=== PATIENT | male | born 1950 | race American Indian/Alaskan Native ===

== ENCOUNTER 2025-01-22 18:27 | Inpatient (IN) | payer MEDICARE, MEDICAID ==
[~2025-01-22] VITALS: Ht 177.8 cm; Wt 52.0 kg
--- NOTE | 2025-01-22 18:43 | Physician Documentation ---
History of Present Illness ~ Chief Complaint: See Chief Complaint Stated Complaint: FOOT PAIN Time Seen by MD: 18:40 HPI Patient presents to the emergency room for evaluation of his right 2nd toe. Over the past three months he has been suffering from an infection. He was placed on antibiotics without effect. He showed up at [facility] with his toe and that has concern for gangrene therefore was sent to our facility to be evaluated by ortho. Vanc and Rocephin administered CT angio from sending facility showed that that has severe a proximally 90% stenosis in the distal right common femoral artery and that has also occlusion of the right dorsalis pedis at the ankle joint with diminished flow in the plantar arteries and that there was into rashes gas on both sides of the 2nd DIP joint. Medication Reconciliation Allergies: Coded Allergies: No Known Allergies (Unverified , 01/22/25) Review of Systems ROS All review of systems negative except as per HPI Physical Exam Vital Signs: Temperature: 98.4, Source: Oral, Heart Rate: 87, Respiratory Rate: 24, BP: 132/85, Pulse Oximetry: 84, Weight: 52.000 Physical Exam General: Patient is awake, alert, oriented x4 in no acute distress Head: Normocephalic and atraumatic. Eyes: Conjunctival normal. EOMI. PERRL. ENT: Mucous membranes moist. Neck: Supple, trachea is midline. Chest: Clear to auscultation bilaterally without rales, rhonchi, or wheezes. Th ere is no accessory muscle use or retractions. Cardiac: RRR without murmurs, gallops, or rubs. Extremities: noted gangrenous right 2nd digit Progress Results/Orders Results/Orders Orders - EDMOND MOON MD Vl Tai (01/22/25 ) Page Hospitalist (01/22/25 19:19) Fill Out Med Reconciliation (01/22/25 19:19) Page Hospitalist (01/22/25 19:19) Fill Out Med Reconciliation (01/22/25 19:19) Heparin 25,000 Unit/250ml Bag (Heparin 2 (01/22/25 19:20) Heparin 10,000 Unit/Ml 1ml (Heparin 10,0 (01/22/25 19:20) Cbc/Diff (01/24/25 03:00) Cbc/Diff (01/25/25 03:00) Cbc/Diff (01/26/25 03:00) Cbc/Diff (01/27/25 03:00) Completed Orders - EDMOND MOON MD Vl Tai (01/22/25 ) Cbc/Diff (01/22/25 19:04) BMP (01/22/25 19:04) Type And Screen (01/22/25 19:04) Pt Inr (01/22/25 19:19) PTT (01/22/25 19:19) Cbc/Diff (01/23/25 03:00) Hydrocodone/Apap 10/325 ([place] 10/325mg (01/22/25 20:25) Nicotine 21mg Patch -24hr (Habitrol Patc (01/22/25 20:25) Message To Nursing (01/22/25 20:30) Dvt Ptt (01/23/25 03:30) Hgb A1c (01/22/25 19:16) Vital Signs 01/22/25 01/22/25 18:30 18:38 Temp 98.4 Pulse 87 Resp 24 B/P (MAP) 132/85 Pulse Ox 84 Laboratory Tests Test 01/22/25 19:16 White Blood Count 7.4 Red Blood Count 4.81 Hemoglobin 13.9 L Hematocrit 40.1 L Mean Corpuscular Volume 83.3 Mean Corpuscular Hemoglobin 28.8 Mean Corpuscular Hemoglobin Concent 34.6 Red Cell Distribution Width 16.3 H Platelet Count 179 Mean Platelet Volume 6.7 L Neutrophils (%) (Auto) 86.4 H Lymphocytes (%) (Auto) 7.4 L Monocytes (%) (Auto) 5.2 Eosinophils (%) (Auto) 0.3 Basophils (%) (Auto) 0.7 Neutrophils # (Auto) 6.4 Lymphocytes # (Auto) 0.5 L Monocytes # (Auto) 0.4 Eosinophils # (Auto) 0.0 Basophils # (Auto) 0.1 CBC Comment Prothrombin Time 11.5 INR International Normalized Ratio 1.1 Activated Partial Thromboplast Time 58 H Coagulation Comments Sodium Level 136 Potassium Level 3.6 Chloride Level 100 Carbon Dioxide Level 28.7 Anion Gap 7 L Blood Urea Nitrogen 19 H Creatinine 0.73 Estimated GFR/1.73 m2 > 90 BUN/Creatinine Ratio 26.0 H Glucose Level 106 H Hemoglobin A1c 5.5 Lactic Acid Level 0.6 Calcium Level 8.2 L Albumin 3.0 L Chemistry Comments Medical Decision Making Findings Patient is sent from [facility] for evaluation of necrotic toe. Reviewed paperwork sent with the patient that has a CTA angiogram performed. Results has been discussed with Dr. Hu who requests an TAI. Dr. Tinoco with orthopedist that has also been made aware of patient. Vital signs stable. Patient had no acute distress Foot Diff Dx:Considerations: Include: Cellulitis, DJD, Fracture-metatarsal, Gou t, Ingrown toenail, Neurovascular injury Departure Admitted to Inpatient Unit: yes, to hospitalist Impression: Primary Impression: Necrosis of toe Additional Impression: Occlusion of right dorsalis pedis artery Condition: Guarded Referrals: NO PRIMARY CARE PROVIDER (PCP) Critical Care Note Total Time (mins): 45 Critical Care Note The very real possibility of a deterioration of this patient's condition required the highest level of my preparedness for sudden, emergent intervention. I provided critical care services, which included medication orders, frequent reevaluations of the patient's condition and response to treatment, ordering and reviewing test results, and discussing the case with various consultants. Excludes time spent performing separately billable procedures. The critical care time associated with the care of the patient was 45 minutes not counting procedures Signature Scribe Signature: No scribe Attestation: The note accurately reflects work and decisions made by me.Edmond Moon MD 01/22/25 19:04 EDMOND MOON MD Jan 22, 2025 18:43
[2025-01-22] MEDS ORDERED: heparin 10,000 units/1 ML INJ IV ONE (19:20)
[2025-01-22 19:31] LABS: MEAN PLATELET VOLUME 6.7 FL (7.4-10.4); RED CELL DISTRIBUTION WIDTH 16.3 % (11.5-14.5)
[2025-01-22 19:37] LABS: CREATININE 0.73 MG/DL (0.60-1.10); TOTAL CARBON DIOXIDE 28.7 MMOL/L (24-32); eCRCL 67 ML/MIN; eGFR > 90 ML/MIN
[2025-01-22 19:45] LABS: APTT 58 SECONDS (22-32); INR 1.1 INR
--- NOTE | 2025-01-22 20:28 | VASCULAR REPORT ---
EXAM: VASC VL TAI ANKLE/BRACHIAL INDEX CLINICAL HISTORY: Peripheral arterial disease COMPARISON: None TECHNIQUE: Bilateral systolic ankle and brachial pressures are obtained, with ankle pulse volume waveforms and i ndices. FINDINGS: Pressures: Right Left Brachial 137 mmHg Not measured due to IV. PT 76 mmHg 80 mmHg DP pressure too low 84 mmHg TAI: Right Left 0.55 0.61 Pulse volume waveforms: Bilateral posterior tibial and dorsal pedal artery waveforms are monophasic. Velocity is especially d epressed in the right dorsal pedal artery suggestive of upstream arterial disease. IMPRESSION: [id number] depression of bilateral lower extremity ankle-brachial indices, right worse than lef t. Consider further evaluation with CTA runoff of bilateral lower extremities. 1.0-1.4: normal 0.91-0.99 borderline 0.9: abnormal (i.e. PAD) 0.4-0.9: fejr-jz-ijdbnday PAD <0.4: suggestive of severe PAD
[2025-01-22] MEDS: heparin 25,000 UNIT/250ml bag 250 ML IV PRN (20:33)
[2025-01-22] MEDS: MESSAGE TO NURSING IV ONE (20:34)
[2025-01-22] MEDS: nicotine 21mg patch - 24 hr TD ONE (20:41)
[2025-01-22] MEDS: HYDROcodone/acetaminophen 10/325mg tab PO ONE (20:42)
[2025-01-22] MEDS ORDERED: magnesium Cl slow-release 64mg tablet PO PRN (21:05)
[2025-01-22] MEDS ORDERED: magnesium sulf-water 4G/100mL 100 ML IV PRN (21:05)
[2025-01-22] MEDS ORDERED: magnesium hydroxide 30ml (MOM) UD suspension PO PRN (21:05)
[2025-01-22] MEDS ORDERED: potassium Cl 20 mEq SR tablet PO PRN (21:05)
[2025-01-22] MEDS ORDERED: potassium Cl 40MEQ/1/2NS 520ml 520 ML IV PRN (21:05)
[2025-01-22] MEDS ORDERED: magnesium sulf-water 2g/50mL 50 ML IV PRN (21:05)
[2025-01-22] MEDS ORDERED: mag hydrox/Alum hydrox/simeth 30ml oral suspension PO PRN (21:05)
[2025-01-22] MEDS ORDERED: HYDROcodone/acetaminophen 5mg/325mg tablet PO PRN (21:05)
[2025-01-22] MEDS: ondansetron/PF 4mg/2ml inj IV PRN (21:33)
[2025-01-22] MEDS: HYDROmorphone/PF 0.2 MG/ML SYRINGE IV PRN (21:34)
--- NOTE | 2025-01-22 21:39 | PROGRESS NOTE ---
Progress Note ID Providers to CC ~ Progress Note Progress Note: cta reviewed-abd noted-pt needs right ext iliac stent-Will ask Dr. Bowling to place stent IKE HERNANDEZ MD Jan 22, 2025 21:39
--- NOTE | 2025-01-22 21:58 | RADIOLOGY REPORT ---
CHEST RADIOGRAPH Indication: smoker. Possible surgery Technique: Single frontal view of the chest was obtained COMPARISON: None FINDINGS: Lines and Tubes: None Lungs: Chronic appearing bilateral interstitial pulmonary markings. Left basilar atelectasis and prob able scarring of the left lateral lung base. Pleura: No effusion. No pneumothorax. Cardiomediastinal contours: Unremarkable. Atherosclerotic vascular calcifications. Bones: Unremarkable IMPRESSION: 1. No acute disease. Chronic appearing bilateral interstitial pulmonary markings, left basilar atelec tasis and probable scarring of the lateral left lung base.
[2025-01-22] MEDS: vancomycin/NS 1 GM ADD-VANTAGE 250 ML IV SCH (22:07)
[2025-01-22] MEDS: normal saline 1000ml 1,000 ML IV SCH (22:07)
--- NOTE | 2025-01-22 22:12 | ELECTROCARDIOGRAPH REPORT ---
[facility] Test Date: 2025-01-22 Test Time: 22:10:20 Pat Name: MODE MUNOZ Department: ED HOLD Room: ORTHO [facility] Gender: M Screw Machine Set Up Operator: : 1950 Requested By: HARDEEP BLEDSOE Order Number: [id number] Reading MD: Dr. Zane Almendarez Measurements Intervals [place] Rate: 81 P: 72 NV: 168 QRS: 40 QRSD: 100 T: 55 QT: 406 QTc: 472 Interpretive Statements Sinus rhythm Supraventricular bigeminy Electronically Signed On 01-30-2025 20:06:[address] Zane Almendarez Please click the below link to view image of tracing.
[2025-01-22 23:00] VITALS: BP 140/74; PULSE 79; RESP 15; TEMP 96.9; O2SAT 98
[2025-01-22] MEDS: ALPRAZolam 0.25mg tablet PO ONE (23:12)
--- NOTE | 2025-01-22 23:15 | HISTORY AND PHYSICAL-Residence ---
History & Physical Providers to CC Resident Creating Document: HARDEEP BLEDSOE RES ~ History of Present Illness Reason for Admit\Complaint: Right 2nd and 3rd toe gangrene History of Present Illness The 74-year-old male was transferred from outside hospital for further management of right foot necrotic toes. He is a poor historian. Per the outside facility, he received 1 g Rocephin and 1 g vancomycin and also that he was smoking in the bathrooms. Patient states that he developed wound on his right 2nd toe few months back and is unsure how he developed the wound. States that he used multiple antibiotics. Also mentioned that he used dog antibiotics because he could not get an appointment with the PCP. Likely has some underlying psychiatric issues. Denies any other complaints. States that the wound has not improved and got worse. Now complains of pain in the right foot which also sometimes radiates to his knees. Denies any other complaints. Is very agitated and keeps getting out of the bed. Smokes tobacco and fentanyl. Denies using any medications at home Allergies: Coded Allergies: No Known Allergies (Unverified , 01/22/25) Past Medical History Past Medical History Denies any past medical history. Tobacco abuse, fentanyl abuse Past Surgical History Surgical History Comment Denies any past surgical history Past Social History Social History Comment Smokes fentanyl and smokes tobacco- about five cigarettes per day for many years. Denies drinking alcohol. ROS ROS Constitutional: No fever, chills, dizziness, weakness, weight gain or loss Eyes: No pain, erythema, discharge, blurring of vision ENT: No sore throat, epistaxis, tinnitus Cardiovascular: No chest pain, chest pressure, chest discomfort, palpitations, syncope, lower extremity edema, paroxysmal nocturnal dyspnea Respiratory: No shortness of breath, cough, hemoptysis Gastrointestinal: Normal appetite. No nausea, vomiting, diarrhea, constipation, hematemesis, abdominal pain, bloating, melena or fresh blood Genitourinary: No frequency, urgency, nocturia, hematuria or dysuria Musculoskeletal: Right foot pain present Integumentary: No change in skin, hair, nails. No swelling, bruising, abrasions Neurologic: No headache, neck pain, numbness or tingling of the extremities, weakness Psychiatric: No delusions, depression, loss of interest in normal activity or change in sleep pattern, hallucinations, suicidal ideations Endocrine: No fatigue, weakness, polydipsia, polyuria, change in appetite, heat or cold intolerance, sweating, dry skin Hematological: No bleeding, petechiae, bruising Allergies: No asthma or urticaria Exam Vitals: Vital Signs Date Time Temp Pulse Resp B/P (MAP) Pulse Ox O2 Delivery O2 Flow Rate FiO2 01/22/25 23:09 16 01/22/25 18:38 01/22/25 18:30 98.4 87 84 General: Alert and oriented x4. Anxious and agitated HEENT: Normocephalic and atraumatic. Pupils equal round reactive to light and accommodation. Extraocular movements intact. Oral and nasal mucosa moist Neck: Trachea is in midline. No masses or JVD Chest: Bilateral normal breath sounds. No crackles, rhonchi or wheezes Cardiovascular: Regular rate and rhythm. S1-S2 normal. No rubs or murmurs Abdomen: Soft, nontender nondistended. Bowel sounds present Extremities: Completely necrotic right 2nd toe and partial necrosis of right 3rd toe. Tender to touch around the toes. Dystrophy and discoloration of bilateral toenails. No cyanosis or edema. No purplish discoloration of foot. 2+ pedal pulse on left foot and 1+ in the right -difficult to assess as it is tender to touch Central Nervous System: No gross sensory or motor deficits. CN II to XII intact Skin: Warm and dry Diagnostic Data Last Recorded Lab Results: 01/22/25191501/22/251915 Diagnostic Data: Laboratory Tests Test 01/22/25 19:16 Prothrombin Time 11.5 SECONDS (9.0-12.0) INR International Normalized Ratio 1.1 INR Activated Partial Thromboplast Time 58 SECONDS (22-32) H Coagulation Comments Advance Care Planning Advanced Care plannin - 30 Minutes Additional Plan Right 2nd and 3rd toe gangrene No acute limb ischemic signs Lower extremity CTA done at the outside hospital showed severe approximately 90% stenosis in the distal right common iliac artery, occlusion of the right dorsalis pedis at the ankle joint with diminished flow in the plantar arteries, interosseous gas on both sides of the 2nd distal interphalangeal joint Heparin drip started in the ER Started aspirin 81 mg p.o. daily On-call vascular surgeon -Dr. Moeller consulted Per surgeon's note, patient needs right external iliac artery stent and that he will discuss with IR-Dr. Bowling with a possible surgical procedure on ER physician also consulted ortho-Dr. Tinoco who mentioned that Dr. Coon is going to see the patient tomorrow in a.m. Right TAI: 0.55. Left TAI: 0.61 Received Rocephin and vancomycin at the outside hospital On Zosyn 3.375 g IV q.8h and vancomycin pharmacy to dose On normal saline at 100 cc/hour NPO after midnight possible toe amputation tomorrow in a.m. Continue Dilaudid/morphine MRI right lower extremity ordered to look for the extension of gangrene. Pending ESR Acute encephalopathy/psychosis Likely has underlying psychiatric issue Pulling out IV lines in getting out of bed I spoke with the patient in a monitored pain medication Gave Dilaudid 2 mg IV once Xanax 0.5 mg p.o. once but continues to pull IV lines Gave Ativan 2 mg IV once and Haldol 5mg IM once Prolonged QTC 472. Continue telemetry monitoring monitoring due to risk of arrhythmias with the Haldol Consider olanzapine if continues to be agitated Pending UA and urine tox, ethyl alcohol level, TSH Head CT ordered but has no difficulty moving all his extremities and is oriented with his speech Tobacco abuse and possible opioid use disorder States that he used methadone in the past Now receiving opioids for pain due to gangrene and toes Did not start nicotine patch due to possible surgery tomorrow in a.m. Field Marketing Coordinator and substance use navigator consult requested Unsure about patient's living conditions Diet: NPO for possible surgery tomorrow in a.m. DVT prophylaxis: Start after the surgery Hardeep Bledsoe MD Internal Medicine Resident, PGY 3 Patient evaluated using HIPPA compliant AV device Discussed with resident as outlined above Katerine Quach MD Date of Service: Jan 23, 2025 Billing Provider: KATERINE QUACH MD, MANOJNA RES Jan 22, 2025 23:14 KATERINE QUACH MD Jan 23, 2025 04:19
[2025-01-22] MEDS: HYDROcodone/acetaminophen 10/325mg tab PO PRN (23:17)
[2025-01-23] VITALS (7 sets, daily range): BP systolic 132–149; BP diastolic 73–89; PULSE 56–80; RESP 13–20; TEMP 97.8–98.2; O2SAT 87–98
[2025-01-23] MEDS: haloperidol lactate 5mg/ml inj IM ONE ×2 (01:53→20:34)
[2025-01-23] MEDS: piperacillin/tazo 3.375gm/50ml 50 ML IV SCH (02:35)
[2025-01-23 03:51] LABS: MEAN PLATELET VOLUME 6.7 FL (7.4-10.4); RED CELL DISTRIBUTION WIDTH 16.1 % (11.5-14.5)
[2025-01-23 04:08] LABS: CHOL/HDL RATIO 3.2 (0.00-4.99); CREATININE 0.65 MG/DL (0.60-1.10); LDL CHOLESTEROL 79 MG/DL (50-100); PHOSPHORUS 3.0 MG/DL (2.3-4.5); TOTAL CARBON DIOXIDE 28.7 MMOL/L (24-32); eCRCL 76 ML/MIN; eGFR > 90 ML/MIN
[2025-01-23 04:19] LABS: INR 1.2 INR
[2025-01-23 04:44] LABS: ETHANOL < 10 MG/DL (<10)
--- NOTE | 2025-01-23 06:47 | CONSULTATION REPORT ---
History of Present Illness Providers to CC ~ Reason for Admit\Admit Dx: Right 2nd and 3rd toe gangrene Allergies: Coded Allergies: No Known Allergies (Unverified , 01/22/25) Physical Exam Last Vital Signs Recorded: Temperature: 98.0, Source: Oral, Heart Rate: 80, Respiratory Rate: 20, BP: 149/76, Pulse Oximetry: 93, Weight: 52.000 Physical Exam gangrenous changes to the 2nd and 3rd toe exending to the dorsal foot with gangrenous changes to the tip of the 1st digit pulses are weak and cft is delayed mostly dry gangrene with some serous drainage to the base of 2nd toe Results Diagram Lab Result Diagram: 01/23/25 0330 01/23/25 0330 Assessment/Plan Additional Plan xr and MRi ordered plan for surgical intervention recommend vascular consult spoke with vascular and they are going to perform revasc and their medical advise is to wait on the amputation until tuesday at the earliest will follow patient over the weekend and plan for TMA early next week. abx per medical team local wound care per nursing staff until tma can be reached at office [phone] MARIA G OSORIO DPM Jan 23, 2025 06:47
[2025-01-23] MEDS: K and/or MAG REPLACEMENT MC SCH (08:00)
[2025-01-23] MEDS: aspirin 81mg, enteric-coated 1 TAB TABLET.DR PO SCH (08:26)
--- NOTE | 2025-01-23 09:17 | RADIOLOGY REPORT ---
CLINICAL INDICATION: right foot 2nd toe infection TECHNIQUE: DI FOOT, COMPLETE (3VW MIN) Comparison: None FINDINGS/IMPRESSION: : There is no evidence of acute fracture or dislocation. Soft tissues are unremarkable. Osteopenia.
[2025-01-23] MEDS: MESSAGE TO NURSING IV ONE ×3 (10:08→22:47)
--- NOTE | 2025-01-23 12:37 | RADIOLOGY REPORT ---
CT CT HEAD Indication: r/o intracranial abnormalities EXAM DATE: 01/23/2025 11:52 AM COMPARISON: None TECHNIQUE: CT of the head without intravenous contrast. RADIATION DOSE: CTDIvol: 53 mGy, DLP: 840 mGy*cm FINDINGS: There is no intracranial hemorrhage. There is no extra-axial fluid, mass, mass effect or midline shif t. The ventricles are midline and normal in size. Basilar cisterns are patent. There are moderate per iventricular and subcortical white matter chronic microvascular ischemic changes. Imaged portion of the paranasal sinuses well pneumatized. Moderate left mastoid effusion. Right orb ital lens absent. IMPRESSION: No intracranial hemorrhage or mass effect. Moderate chronic microvascular ischemic changes. Left mastoid effusion.
--- NOTE | 2025-01-23 20:55 | PROGRESS NOTE ---
Daily Progress Note Providers to CC ~ Antibiotic Timeout Antibiotic Ordered?: Yes Subjective Patient was seen in presence of nursing staff patient is confused. Dr. Norris evaluated the patient for right 2nd and 3rd toe gangrene. Objective Vital Signs Date Time Temp Pulse Resp B/P (MAP) Pulse Ox O2 Delivery O2 Flow Rate FiO2 01/23/25 10:00 97.9 63 18 145/74 (97) 94 Nasal Cannula 2.0 Result Diagram: 01/23/2532901/23/25 0330 General-patient not in any acute distress, confused , chronically ill-appearing HEENT-atraumatic normocephalic, neck supple without elevated JVD, no thyromegaly or carotid bruit. No lymphadenopathy bilaterally. Eyes-no icterus or pallor seen in eyes Chest-clear to auscultation bilaterally, breathing nonlabored no tachypnea, no wheezing, no crepitation, no crackles. Heart-S1-S2 normal, regular heart rate no murmur Abdomen bowel sounds positive on auscultation, soft nondistended nontender no guarding, no rigidity Skin - dry gangrene present over right 2nd and 3rd great toe Neurology-grossly intact, nonfocal alert awake oriented Extremity- no pedal edema able to move all 4 extremitiesdry gangrene present over right 2nd and 3rd great toe. No pedal pulsations noted on palpation Psychiatry - patient is confused barely cooperated during physical examination Coagulation Studies Laboratory Tests Test 01/22/25 19:16 01/23/25 03:30 01/23/25 15:13 Activated Partial Thromboplast Time 58 SECONDS (22-32) H Prothrombin Time 11.8 SECONDS (9.0-12.0) INR International Normalized Ratio 1.2 INR APTT (Heparin Protocol) 81 SECONDS (45-75) H Coagulation Comments Problem\Assessment\Plan Right 2nd and 3rd toe gangrene No acute limb ischemic signs Lower extremity CTA done at the outside hospital showed severe approximately 90% stenosis in the distal right common iliac artery, occlusion of the right dorsalis pedis at the ankle joint with diminished flow in the plantar arteries, interosseous gas on both sides of the 2nd distal interphalangeal joint Heparin drip started in the ER on aspirin 81 mg p.o. daily On-call vascular surgeon -Dr. Moeller consulted he recommended Dr. Bowling to place stent thursday ER physician also consulted ortho-Dr. Tinoco who mentioned that Dr. Coon is going to see the patient . Dr. Coon evaluated the patient today Right TAI: 0.55. Left TAI: 0.61 Received Rocephin and vancomycin at the outside hospital On Zosyn 3.375 g IV q.8h and vancomycin pharmacy to dose On normal saline at 100 cc/hour Continue Dilaudid/morphine MRI right lower extremity ordered to look for the extension of gangrene. ESR 20 normal Acute encephalopathy/psychosis Likely has underlying psychiatric issue Pulling out IV lines in getting out of bed on Dilaudid 2 mg IV , Xanax 0.5 mg p.o. once but continues to pull IV lines got Ativan 2 mg IV once and Haldol 5mg IM once Prolonged QTC 472. Continue telemetry monitoring monitoring due to risk of arrhythmias with the Haldol will Consider olanzapine if continues to be agitated Pending UA and urine tox, ethyl alcohol level, TSH Head CT done and no intracranial hemorrhage or mass effect Tobacco abuse and possible opioid use disorder States that he used methadone in the past Now receiving opioids for pain due to gangrene and toes Registered Art Therapist and substance use navigator consult requested Unsure about patient's living conditions Patient's current condition is guarded we will continue to follow patient in AM . Date of Service: Jan 23, 2025 Billing Provider: MAYO GASPAR MD Common Visit Codes: [id number] INP/OBS CARE(HIGH) MAYO GASPAR MD Jan 23, 2025 20:55
--- NOTE | 2025-01-23 21:01 | CONSULTATION ---
DATE OF CONSULTATION: 01/23/2025 DICTATING PHYSICIAN: Ken Moeller MD REASON FOR CONSULTATION: Evaluation of abnormal CTA. HISTORY OF PRESENT ILLNESS: The patient is a 74-year-old male with a long history of tobacco use. He developed discoloration of toes of his right foot. He was seen at an outside facility. CTA revealed severe right external iliac artery stenosis. Surgical evaluation now requested. On further questioning, the patient has complaints of claudication involving the right leg. No left lower extremity complaints. No previous vascular interventions. He also has a long history of tobacco use. No complaints of any rest pain. PAST MEDICAL HISTORY: Unremarkable. PAST SURGICAL HISTORY: Unremarkable. HOME MEDICATIONS: See chart. ALLERGIES: None. SOCIAL HISTORY: Ongoing tobacco use. Denies alcohol use. REVIEW OF SYSTEMS: See H and P. PHYSICAL EXAMINATION: GENERAL: Well-nourished elderly male, in minimal distress. VITAL SIGNS: Unremarkable. HEART: Regular rate and rhythm. LUNGS: Clear to auscultation. ABDOMEN: Benign. EXTREMITIES: Right lower extremity has diminished pedal pulses. LABORATORY DATA: Labs included WBC of 6.9, hematocrit of 39, and platelet count 162. Chemistries: BUN and creatinine 15 and 0.65. IMAGING STUDIES: ____ right external iliac artery stenosis. Vascular ultrasound reveals right TAI of 0.55 and left TAI of 0.61 with monophasic waveforms. IMPRESSION: * Multilevel peripheral vascular disease with right external iliac artery stenosis. * Right toe ischemia secondary to PAD. * Ongoing tobacco use. RECOMMENDATIONS: * Obtain a CTA of lower extremities. * Consult IR in a.m. for right iliac artery stent placement. Ken Moeller MD TID: [id number] RECEIPT: [id number] KB/JUAN MANUEL/AMI
[2025-01-23 22:02] LABS: APTT 70 SECONDS (22-32)
[2025-01-24 02:00] VITALS: BP 136/64; PULSE 64; RESP 16; TEMP 98.2; O2SAT 94
[2025-01-24 04:54] LABS: MEAN PLATELET VOLUME 6.5 FL (7.4-10.4); RED CELL DISTRIBUTION WIDTH 15.7 % (11.5-14.5)
[2025-01-24 05:07] LABS: INR 1.2 INR
[2025-01-24 05:16] LABS: CREATININE 0.90 MG/DL (0.60-1.10); PHOSPHORUS 3.3 MG/DL (2.3-4.5); TOTAL CARBON DIOXIDE 24.0 MMOL/L (24-32); eCRCL 55 ML/MIN; eGFR 83 ML/MIN
[2025-01-24] MEDS: MESSAGE TO NURSING IV ONE ×4 (05:21→23:54)
[2025-01-24] MEDS: VANCOMYCIN LEVEL IV ONE (08:30)
[2025-01-24 10:00] VITALS: BP 182/101; PULSE 58; RESP 18; TEMP 97.8; O2SAT 90
--- NOTE | 2025-01-24 10:25 | RADIOLOGY REPORT ---
Examination: CT CTA ABDOMEN LOWER EXTR RUNOFF CLINICAL HISTORY: abnormal benjamin Comparison: None Technique: Using helical technique, CT data from the abdomen through the toes was obtained during rap id IV contrast infusion. The examination was timed to the arterial system to generate a CT angiograph ic study. 3D images were generated at an independent work station. Dose reduction techniques included automated exposure control. Radiation Dose Information: CT Dose: CTDI volume is 4.4 mGy. Dose-length product is 1350.2 mGy*cm Findings: Vascular: Abdominal aorta: Normal caliber, patent Celiac artery: Patent SMA: Patent Renal arteries: Patent LY: Patent Right lower extremity: Common iliac artery: Patent External iliac artery: Patent Internal iliac artery: Patent Common femoral artery: High-grade approximately 90% short-segment stenosis of the proximal common fem oral artery /distal external iliac artery secondary to atheromatous plaque. Profunda femoral artery: Patent Superficial femoral artery: Patent Popliteal artery: Patent Anterior tibial artery: Patent Peroneal tibial trunk: Patent Peroneal artery: Patent Posterior tibial artery: Patent Dorsalis pedis artery: Patent Left lower extremity: Common iliac artery: Patent External iliac artery: Patent Internal iliac artery: Patent Common femoral artery: Patent Profunda femoral artery: Patent Superficial femoral artery: Occluded. Reconstituted distally just proximal of the popliteal artery. Popliteal artery: Patent Anterior tibial artery: Patent Peroneal tibial trunk: Patent Peroneal artery: Patent Posterior tibial artery: Patent Dorsalis pedis artery: Patent Portal/mesenteric veins: normal Abdominal systemic veins: normal Chest: Severe emphysema. Dependent atelectasis. Abdomen/Pelvis: Liver: The liver is normal in size and morphology,. No focal hepatic lesion. The portal veins are pat ent. Biliary System: Gallbladder: Unremarkable Bile Ducts: No intrahepatic or extrahepatic biliary ductal dilation. Spleen: No splenomegaly or focal splenic lesion. Pancreas: No masses or ductal dilation. Adrenals: Normal. Urinary System: Kidneys and Ureters: Normal in size and location. No renal masses. No renal or ureteral calculi. No hydronephrosis or hydroureter. Bladder: Normal. GI System: Moderately thickened ascending and transverse colon. Lymph nodes: No lymphadenopathy. Peritoneal cavity and surface: No free fluid. No pneumoperitoneum. Soft Tissues: Normal. Reproductive Organs: Normal. Bones: No acute fracture or aggressive osseous lesion. Degenerative changes of the spine. Impression: Possible colitis versus underdistention of the ascending and transverse colon. Diffuse vascular atherosclerotic disease. High-grade short-segment, near 90% stenosis of the distal right external iliac artery / proximal comm on femoral artery. Occlusion of nearly the entire left superficial femoral artery with reconstitution distally likely fr om the deep femoral artery. 3-vessel arterial flow is present into bilateral lower extremities.
[2025-01-24] MEDS: VANCOmycin 1250MG/NS 250ml Bag 250 ML IV SCH (13:39)
[2025-01-24] MEDS: potassium Cl 20 mEq SR tablet PO PRN (16:19)
--- NOTE | 2025-01-24 17:15 | PROGRESS NOTE ---
Progress Note - Angio Providers to CC ~ Angio Progress Note: Reviewed CTA and agree a Right external iliac stent is needed. This could be done via LCFA access or actually possibly via a distal RCFA access and short sheath etc. However, due to consent limitations, anesthesia and patient condition at this time, today we are unable to do this procedure. D/W Dr. Moeller. SUZI LOWERY MD Jan 24, 2025 17:15
[2025-01-24 18:30] VITALS: BP 151/64; PULSE 44; RESP 14; TEMP 97.3; O2SAT 93
[2025-01-24] MEDS: normal saline 1000ml 1,000 ML IV SCH (19:36)
--- NOTE | 2025-01-24 19:39 | PROGRESS NOTE ---
Daily Progress Note Providers to CC ~ Antibiotic Timeout Antibiotic Ordered?: No Subjective Patient was seen in his room he is very confused still. Interventional application packaging specialist note" Reviewed CTA and agree a Right external iliac stent is needed. This could be done via LCFA access or actually possibly via a distal RCFA access and short sheath etc. However, due to consent limitations, anesthesia and patient condition at this time, today we are unable to do this procedure. D/W Dr. Moeller." Objective Vital Signs Date Time Temp Pulse Resp B/P (MAP) Pulse Ox O2 Delivery O2 Flow Rate FiO2 01/24/25 18:30 97.3 44 14 151/64 (93) 93 Room Air 01/23/25 20:00 2.0 Result Diagram: 01/24/2542801/24/25428 General-patient not in any acute distress, confused , chronically ill-appearing HEENT-atraumatic normocephalic, neck supple without elevated JVD, no thyromegaly or carotid bruit. No lymphadenopathy bilaterally. Eyes-no icterus or pallor seen in eyes Chest-clear to auscultation bilaterally, breathing nonlabored no tachypnea, no wheezing, no crepitation, no crackles. Heart-S1-S2 normal, regular heart rate no murmur Abdomen bowel sounds positive on auscultation, soft nondistended nontender no guarding, no rigidity Skin - dry gangrene present over right 2nd and 3rd great toe Neurology-grossly intact, nonfocal alert awake oriented Extremity- no pedal edema able to move all 4 extremitiesdry gangrene present over right 2nd and 3rd great toe. 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 daily On-call vascular surgeon -Dr. Moeller consulted he recommended Dr. Bowling to place stent ER physician also consulted ortho-Dr. Tinoco who mentioned that Dr. Coon is going to see the patient . Dr. Coon evaluated the patient today Right TAI: 0.55. Left TAI: 0.61 Received Rocephin and vancomycin at the outside hospital On Zosyn 3.375 g IV q.8h and vancomycin pharmacy to dose On normal saline at 100 cc/hour Continue Dilaudid/morphine MRI right lower extremity ordered to look for the extension of gangrene. ESR 20 normal Acute encephalopathy/psychosis Likely has underlying psychiatric issue Pulling out IV lines in getting out of bed on Dilaudid 2 mg IV , Xanax 0.5 mg p.o. once but continues to pull IV lines got Ativan 2 mg IV once and Haldol 5mg IM once Prolonged QTC 472. 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 Date of Service: Jan 24, 2025 Billing Provider: MAYO GASPAR MD Common Visit Codes: [id number] INP/OBS CARE(HIGH) MAYO GASPAR MD Jan 24, 2025 19:39
[2025-01-24] MEDS ORDERED: HYDROmorphone/PF 0.2 MG/ML SYRINGE IV PRN (19:40)
--- NOTE | 2025-01-24 20:25 | RADIOLOGY REPORT ---
Procedure: DI CHEST,SINGLE VIEW 01/24/2025 07:54 PM Indication: monitor changes Comparison: DI CHEST,SINGLE VIEW on DOS: 01/22/25 TECHNIQUE: DI CHEST,SINGLE VIEW FINDINGS: Medical devices: None. Cardiomediastinal: The heart is normal in size. Pulmonary vasculature is within normal limits. Lungs: There is mild bilateral pleural parenchymal scarring scattered throughout the lungs. 9 mm nodu lar opacity at the left lung base. Bones/soft tissues: No acute abnormality is noted. IMPRESSION: 1. 9mm nodular opacity at the left lung base, recommend chest CT for further evaluation. 2. Scattered pleuroparenchymal scarring most notable in the left lung base
[2025-01-24 22:00] VITALS: BP 155/74; PULSE 57; RESP 18; TEMP 96.7; O2SAT 92
--- NOTE | 2025-01-24 22:35 | PROGRESS NOTE ---
Progress Note ID Providers to CC ~ Progress Note Progress Note: Dr. Bowling unable to stent-pt needs transfer IKE HERNANDEZ MD Jan 24, 2025 22:35
[2025-01-24 23:21] LABS: APTT 39 SECONDS (22-32)
[2025-01-24] MEDS: heparin 10,000 units/1 ML INJ IV PRN (23:56)
[2025-01-25] VITALS (15 sets, daily range): BP systolic 83–171; BP diastolic 44–98; PULSE 48–109; RESP 14–22; TEMP 97.1–98.3; O2SAT 90–100
[2025-01-25 05:23] LABS: MEAN PLATELET VOLUME 6.7 FL (7.4-10.4); RED CELL DISTRIBUTION WIDTH 16.3 % (11.5-14.5)
[2025-01-25 05:41] LABS: INR 1.2 INR
[2025-01-25 05:44] LABS: CREATININE 0.72 MG/DL (0.60-1.10); PHOSPHORUS 2.2 MG/DL (2.3-4.5); TOTAL CARBON DIOXIDE 24.5 MMOL/L (24-32); eCRCL 68 ML/MIN; eGFR > 90 ML/MIN
[2025-01-25] MEDS: MESSAGE TO NURSING IV ONE ×2 (06:42→12:29)
[2025-01-25] MEDS: HYDROmorphone inj. 0.5 MG/0.5 ML DISP.SYRIN IV PRN (10:50)
[2025-01-25] MEDS ORDERED: fentaNYL/PF 50MCG/1 ML 2ML syringe ONE (13:03)
[2025-01-25] MEDS ORDERED: LIDOcaine 1% 30ml preserv. free vial ONE (13:03)
[2025-01-25] MEDS ORDERED: heparin 1,000unit/ml 10ml vial 10 ML ONE (13:03)
[2025-01-25] MEDS ORDERED: midazolam 1 mg/ML 2ml injection ONE ×3 (13:03→13:57)
[2025-01-25] MEDS ORDERED: clopidogrel 300mg tablet PO ONE (15:25)
[2025-01-25] MEDS: lactose-reduced food (Ensure Enlive) - 237ml bottle PO SCH (18:00)
--- NOTE | 2025-01-25 19:05 | PROGRESS NOTE ---
Daily Progress Note Providers to CC ~ Antibiotic Timeout Antibiotic Ordered?: Yes Subjective Patient was seen in his room he was alert awake and he was not lethargic or confused like yesterday. He wanted to get some stronger pain medication for his toe pain. Dr. Hu recommended to transfer the patient but I contacted Dr. Dyer to evaluate this patient for vascular procedure and he is willing to do the lower extremity angiogram for the patient. No other concerns we will keep patient NPO for the procedure at 2:30 p.m. today Objective Vital Signs Date Time Temp Pulse Resp B/P (MAP) Pulse Ox O2 Delivery O2 Flow Rate FiO2 01/25/25 18:00 97.3 109 15 137/87 (104) 92 Room Air 01/25/25 16:00 1.0 Result Diagram: 01/25/25 0459 01/25/25 0459 General-patient not in any acute distress, not confused , chronically ill- appearing HEENT-atraumatic normocephalic, neck supple without elevated JVD, no thyromegaly or carotid bruit. No lymphadenopathy bilaterally. Eyes-no icterus or pallor seen in eyes Chest-clear to auscultation bilaterally, breathing nonlabored no tachypnea, no wheezing, no crepitation, no crackles. Heart-S1-S2 normal, regular heart rate no murmur Abdomen bowel sounds positive on auscultation, soft nondistended nontender no guarding, no rigidity Skin - dry gangrene present over right 2nd and 3rd great toe Neurology-grossly intact, nonfocal alert awake oriented Extremity- no pedal edema able to move all 4 extremitiesdry gangrene present over right 2nd and 3rd great toe. 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 daily On-call vascular surgeon -Dr. Moeller consulted he recommended Dr. Bowling to place stent ER physician also consulted ortho-Dr. Tinoco who mentioned that Dr. Coon is going to see the patient . Dr. Coon evaluated the patient today Right TAI: 0.55. Left TAI: 0.61 Received Rocephin and vancomycin at the outside hospital On Zosyn 3.375 g IV q.8h and vancomycin pharmacy to dose On normal saline at 100 cc/hour Continue Dilaudid/morphine MRI right lower extremity ordered to look for the extension of gangrene. ESR [address] Hu recommended to transfer the patient but I contacted Dr.M Dyer to evaluate this patient for vascular procedure and he is willing to do the lower extremity angiogram for the patient. Acute encephalopathy/psychosis Likely has underlying psychiatric issue Pulling out IV lines in getting out of bed on Dilaudid 2 mg IV , Xanax 0.5 mg p.o. once but continues to pull IV lines got Ativan 2 mg IV once and Haldol 5mg IM once Prolonged QTC 472. Continue telemetry monitoring monitoring due to risk of arrhythmias with the Haldol Pending UA and urine tox, normal ethyl alcohol level, TSH Head CT done and no intracranial hemorrhage or mass effect Tobacco abuse and possible opioid use disorder h/o methadone use in the past Now receiving opioids for pain due to gangrene and toes Tableau Analyst and substance use navigator consult requested Unsure about patient's living conditions Patient's current condition is guarded we will continue to follow patient in AM . Date of Service: Jan 25, 2025 Billing Provider: MAYO GASPAR MD Common Visit Codes: [id number] INP/OBS CARE(HIGH) MAYO GASPAR MD Jan 25, 2025 19:05
[2025-01-25] MEDS: VANCOMYCIN LEVEL IV ONE (21:37)
[2025-01-26] MEDS ORDERED: potassium Cl 20 mEq SR tablet PO PRN (00:55)
[2025-01-26] MEDS ORDERED: potassium Cl 40MEQ/1/2NS 520ml 520 ML IV PRN (00:55)
[2025-01-26] MEDS: potassium Cl 20 mEq SR tablet PO PRN (01:20)
[2025-01-26 05:58] LABS: MEAN PLATELET VOLUME 6.6 FL (7.4-10.4); RED CELL DISTRIBUTION WIDTH 15.8 % (11.5-14.5)
[2025-01-26 06:00] VITALS: BP 160/87; PULSE 83; RESP 16; TEMP 97.4; O2SAT 94
[2025-01-26 06:06] LABS: INR 1.2 INR
[2025-01-26 06:22] LABS: CREATININE 0.68 MG/DL (0.60-1.10); PHOSPHORUS 1.4 MG/DL (2.3-4.5); TOTAL CARBON DIOXIDE 26.1 MMOL/L (24-32); eCRCL 72 ML/MIN; eGFR > 90 ML/MIN
[2025-01-26 10:00] VITALS: BP 129/78; PULSE 92; RESP 15; TEMP 97.3; O2SAT 95
[2025-01-26] MEDS: vancomycin/NS 1 GM ADD-VANTAGE 250 ML IV SCH (10:53)
[2025-01-26] MEDS ORDERED: magnesium sulf-water 2g/50mL 50 ML IV PRN (13:20)
[2025-01-26] MEDS ORDERED: magnesium Cl slow-release 64mg tablet PO PRN (13:20)
[2025-01-26] MEDS ORDERED: magnesium sulf-water 4G/100mL 100 ML IV PRN (13:20)
[2025-01-26 18:00] VITALS: BP 101/72; PULSE 98; RESP 16; TEMP 97.7; O2SAT 96
--- NOTE | 2025-01-26 18:51 | PROGRESS NOTE ---
Daily Progress Note Providers to CC ~ Antibiotic Timeout Antibiotic Ordered?: Yes Subjective Patient was seen in his room patient was still complaining of pain over left foot. Unable to feel pulsation over left lower extremity. Further imaging studies done today results pending. Objective Vital Signs Date Time Temp Pulse Resp B/P (MAP) Pulse Ox O2 Delivery O2 Flow Rate FiO2 01/26/25 17:41 Room Air 0.0 21 01/26/25 13:53 16 01/26/25 10:00 97.3 92 129/78 (95) 95 Result Diagram: 01/26/25 0440 01/26/25 0440 General-patient not in any acute distress, not confused , chronically ill- appearing HEENT-atraumatic normocephalic, neck supple without elevated JVD, no thyromegaly or carotid bruit. No lymphadenopathy bilaterally. Eyes-no icterus or pallor seen in eyes Chest-clear to auscultation bilaterally, breathing nonlabored no tachypnea, no wheezing, no crepitation, no crackles. Heart-S1-S2 normal, regular heart rate no murmur Abdomen bowel sounds positive on auscultation, soft nondistended nontender no guarding, no rigidity Skin - dry gangrene present over right 2nd and 3rd great toe Neurology-grossly intact, nonfocal alert awake oriented Extremity- no pedal edema able to move all 4 extremitiesdry gangrene present over right 2nd and 3rd great toe. 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 daily On-call vascular surgeon -Dr. Moeller consulted he recommended Dr. Bowling to place stent ER physician also consulted ortho-Dr. Tinoco who mentioned that Dr. Coon is going to see the patient . Dr. Coon evaluated the patient today Right TAI: 0.55. Left TAI: 0.61 Received Rocephin and vancomycin at the outside hospital On Zosyn 3.375 g IV q.8h and vancomycin pharmacy to dose On normal saline at 100 cc/hour Continue Dilaudid/morphine MRI right lower extremity ordered to look for the extension of gangrene. ESR [address] Hu recommended to transfer the patient but I contacted Dr.M Dyer to evaluate this patient for vascular procedure and he is willing to do the lower extremity angiogram for the patient. Acute encephalopathy/psychosis Likely has underlying psychiatric issue Pulling out IV lines in getting out of bed on Dilaudid 2 mg IV , Xanax 0.5 mg p.o. once but continues to pull IV lines got Ativan 2 mg IV once and Haldol 5mg IM once Prolonged QTC 472. Continue telemetry monitoring monitoring due to risk of arrhythmias with the Haldol Pending UA and urine tox, normal ethyl alcohol level, TSH Head CT done and no intracranial hemorrhage or mass effect Tobacco abuse and possible opioid use disorder h/o methadone use in the past Now receiving opioids for pain due to gangrene and toes Counter Waitress/Waiter and substance use navigator consult requested Unsure about patient's living conditions Hypokalemia we will do the replacement of potassium as per protocol . Patient's current condition is guarded we will continue to follow patient in AM . Date of Service: Jan 26, 2025 Billing Provider: MAYO GASPAR MD Common Visit Codes: [id number] INP/OBS CARE(HIGH) MAYO GASPAR MD Jan 26, 2025 18:51
[2025-01-26 22:00] VITALS: BP 136/78; PULSE 74; RESP 16; TEMP 98; O2SAT 98
[2025-01-27 05:47] LABS: MEAN PLATELET VOLUME 6.8 FL (7.4-10.4); RED CELL DISTRIBUTION WIDTH 15.9 % (11.5-14.5)
[2025-01-27 06:00] VITALS: BP 122/74; PULSE 56; RESP 18; TEMP 97.6; O2SAT 92
[2025-01-27 06:00] LABS: INR 1.1 INR
[2025-01-27] MEDS ORDERED: NO HOME MEDS (06:23)
[2025-01-27 06:31] LABS: CREATININE 0.66 MG/DL (0.60-1.10); PHOSPHORUS 1.8 MG/DL (2.3-4.5); TOTAL CARBON DIOXIDE 26.4 MMOL/L (24-32); eCRCL 74 ML/MIN; eGFR > 90 ML/MIN
--- NOTE | 2025-01-27 07:09 | RADIOLOGY REPORT ---
CLINICAL INDICATION: right 2nd toe infection - ro osteo TECHNIQUE: Multiplanar, multisequence MRI of the right foot was performed without contrast. Patient was unable to complete all of the sequences. Contrast: None. COMPARISON: None FINDINGS: Bones: There is T1 hypointensity in the 2nd middle and distal phalanx in the distal aspect of the 2nd proximal phalanx, surrounded by soft tissue edema. There is T1 hypointensity in the distal phalanx o f the great toe. There is edema in the bones seen on the coronal STIR images. Evaluation limited due to incomplete studies. However this is concerning for osteomyelitis. Soft tissues: Soft tissue edema in the 2nd and 1st digits. No obvious fluid collection. IMPRESSION: 1. Limited study due to incomplete sequences as patient unable to tolerate. Osteomyelitis suspected i n the distal aspect of the 2nd proximal phalanx, the majority of the middle and distal phalanx of the 2nd toe and the distal phalanx of the great toe. 2. Cellulitis in the 2nd and 3rd toes.
[2025-01-27 07:30] VITALS: RESP 18; O2SAT 97
[2025-01-27 10:00] VITALS: BP 111/64; PULSE 82; RESP 18; TEMP 98.1; O2SAT 98
--- NOTE | 2025-01-27 12:13 | PROGRESS NOTE ---
Daily Progress Note Providers to CC ~ Antibiotic Timeout Antibiotic Ordered?: No Subjective Patient was seen in his room he desperately wanted his gangrenous toes chopped. He had two stent placed by Dr. Dyer in as per Dr. Dyer no further intervention planned. Case was discussed with Dr. Manjeet Coon, podiatry specialist who is willing to evaluate the patient for possible amputation of left foot toes tomorrow and we will keep the patient NPO after midnight. Objective Vital Signs Date Time Temp Pulse Resp B/P (MAP) Pulse Ox O2 Delivery O2 Flow Rate FiO2 01/27/25 07:30 18 97 Room Air 01/27/25 06:00 97.6 56 122/74 (90) 01/26/25 17:41 0.0 21 Result Diagram: 01/27/25 0505 01/27/25 0505 General-patient not in any acute distress, not confused , chronically ill- appearing HEENT-atraumatic normocephalic, neck supple without elevated JVD, no thyromegaly or carotid bruit. No lymphadenopathy bilaterally. Eyes-no icterus or pallor seen in eyes Chest-clear to auscultation bilaterally, breathing nonlabored no tachypnea, no wheezing, no crepitation, no crackles. Heart-S1-S2 normal, regular heart rate no murmur Abdomen bowel sounds positive on auscultation, soft nondistended nontender no guarding, no rigidity Skin - dry gangrene present over right 2nd and 3rd great toe Neurology-grossly intact, nonfocal alert awake oriented Extremity- no pedal edema able to move all 4 extremitiesdry gangrene present over right 2nd and 3rd great toe. 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 daily On-call vascular surgeon -Dr. Moeller consulted he recommended Dr. Bowling to place stent ER physician also consulted ortho-Dr. Tinoco who mentioned that Dr. Coon is going to see the patient . Dr. Coon evaluated the patient today Right TAI: 0.55. Left TAI: 0.61 Received Rocephin and vancomycin at the outside hospital On Zosyn 3.375 g IV q.8h and vancomycin pharmacy to dose On normal saline at 100 cc/hour Continue Dilaudid/morphine MRI right lower extremity ordered to look for the extension of gangrene. ESR [address] Hu recommended to transfer the patient but I contacted Dr.M Dyer to evaluate this patient for vascular procedure and he is willing to do the lower extremity angiogram for the patient. He had two stent placed by Dr. Dyer in as per Dr. Dyer no further intervention planned. Case was discussed with Dr. Manjeet Coon, podiatry specialist who is willing to evaluate the patient for possible amputation of left foot toes tomorrow and we will keep the patient NPO after midnight. Acute encephalopathy/psychosis Likely has underlying psychiatric issue Pulling out IV lines in getting out of bed on Dilaudid 2 mg IV , Xanax 0.5 mg p.o. once but continues to pull IV lines got Ativan 2 mg IV once and Haldol 5mg IM once Prolonged QTC 472. 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 Patient's current condition is guarded we will continue to follow patient in AM . Date of Service: Jan 27, 2025 Billing Provider: MAYO GASPAR MD Common Visit Codes: [id number] INP/OBS CARE(HIGH) MAYO GASPAR MD Jan 27, 2025 12:13
--- NOTE | 2025-01-27 17:59 | DISCHARGE SUMMARY ---
Discharge Summary Providers to CC ~ Discharge Summary Admission Diagnosis: Right second and third toe gangrene Hospital Course DATE OF ADMISSION: January 22, 2025 DATE OF DISCHARGE: January 27, 2025 PATIENT LEFT AGAINST MEDICAL ADVICE EARLY THIS MORNING PATIENT WAS SEEN IN HIS ROOM AND HE WAS DESPERATELY WANTED TO GET HIS GANGRENOUS TOES CHOPPED. TODAY PATIENT DECIDED TO LEAVE AGAINST MEDICAL ADVICE. LOWER EXTREMITY MRI WAS DONE WHICH WAS INCOMPLETE AND PATIENT DO NOT WANT TO GO BACK AGAIN FOR THE REPEAT LOWER EXTREMITY MRI. HE WANTS TO GET THE FENTANYL HE FEELS THAT HE IS GETTING OPIOID WITHDRAWAL AND THAT IS THE MAIN REASON TO LEAVE. Discharge Diagnosis\Comment: Right 2nd and 3rd toe gangrene Acute encephalopathy/psychosis Tobacco abuse and opioid use disorder Hypokalemia Operations\Procedures: two stent placed by Dr. Dyer , status post lower extremity angiogram done on January 25, 2025 Consultants: Dr. Salvador Dyer, Dr. Manjeet Coon, Dr. Moeller Complications: None Condition on DC: Stable Discharge Summary: Right 2nd and 3rd toe gangrene No acute limb ischemic signs Lower extremity CTA done at the outside hospital showed severe approximately 90% stenosis in the distal right common iliac artery, occlusion of the right dorsalis pedis at the ankle joint with diminished flow in the plantar arteries, interosseous gas on both sides of the 2nd distal interphalangeal joint Heparin drip started in the ER on aspirin 81 mg p.o. daily On-call vascular surgeon -Dr. Moeller consulted he recommended Dr. Bowling to place stent ER physician also consulted ortho-Dr. Tinoco who mentioned that Dr. Coon is going to see the patient . Dr. Coon evaluated the patient today Right TAI: 0.55. Left TAI: 0.61 Received Rocephin and vancomycin at the outside hospital On Zosyn 3.375 g IV q.8h and vancomycin pharmacy to dose On normal saline at 100 cc/hour Continue Dilaudid/morphine MRI right lower extremity ordered to look for the extension of gangrene. ESR [address] Hu recommended to transfer the patient but I contacted Dr.M Dyer to evaluate this patient for vascular procedure and he is willing to do the lower extremity angiogram for the patient. He had two stent placed by Dr. Dyer in as per Dr. Dyer no further intervention planned. Case was discussed with Dr. Manjeet Coon, podiatry specialist who is willing to evaluate the patient for possible amputation of left foot toes tomorrow and we will keep the patient NPO after midnight. TODAY PATIENT DECIDED TO LEAVE AGAINST MEDICAL ADVICE. LOWER EXTREMITY MRI WAS DONE WHICH WAS INCOMPLETE AND PATIENT DO NOT WANT TO GO BACK AGAIN FOR THE REPEAT LOWER EXTREMITY MRI. HE WANTS TO GET THE FENTANYL HE FEELS THAT HE IS GETTING OPIOID WITHDRAWAL AND THAT IS THE MAIN REASON TO LEAVE Acute encephalopathy/psychosis Likely has underlying psychiatric issue Pulling out IV lines in getting out of bed on Dilaudid 2 mg IV , Xanax 0.5 mg p.o. once but continues to pull IV lines got Ativan 2 mg IV once and Haldol 5mg IM once Prolonged QTC 472. 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 General- patient not in any acute distress, not confused , chronically ill-appearing HEENT-atraumatic normocephalic, neck supple without elevated JVD, no thyromegaly or carotid bruit. No lymphadenopathy bilaterally. Eyes-no icterus or pallor seen in eyes Chest-clear to auscultation bilaterally, breathing nonlabored no tachypnea, no wheezing, no crepitation, no crackles. Heart-S1-S2 normal, regular heart rate no murmur Abdomen bowel sounds positive on auscultation, soft nondistended nontender no guarding, no rigidity Skin - dry gangrene present over right 2nd and 3rd great toe Neurology-grossly intact, nonfocal alert awake oriented Extremity- no pedal edema able to move all 4 extremitiesdry gangrene present over right 2nd and 3rd great toe. No pedal pulsations noted on palpation Psychiatry - patient is not confused cooperated during physical examination *Problems/Diagnosis: (1) Necrosis of toe Status: Acute Total Time Spent on D/C: > 30 Minutes Date of Service: Jan 27, 2025 Billing Provider: MAYO GASPAR MD Common Visit Codes: 52871-ZGM/OBS DISCH DAY >30min MAYO GASPAR MD Jan 27, 2025 17:57
[2025-01-27] MEDS ORDERED: VANCOMYCIN LEVEL IV ONE (21:30)
--- NOTE | 2025-02-10 13:10 | OPERATIVE REPORT ---
DATE OF SURGERY: 01/25/2025 DICTATING PHYSICIAN: Ayana Dyer MD PROCEDURE NOTE DATE OF STUDY: 01/25/2025 PROCEDURES: * Access to left common femoral artery. * Selective catheter placement in the abdominal aorta and abdominal and aortoiliac artery angiography. * Selective catheter placement in the contralateral right external iliac artery and selective right lower extremity artery angiography. * Selective catheter placement in the ipsilateral left external iliac artery and selective left lower extremity artery angiography. * Angioplasty of the right common femoral artery. * Angioplasty of the right external iliac artery. * Stenting x 1 of the right common/external iliac artery. INDICATION: PAD with nonhealing wounds. PHYSICIAN: Ayana Dyer MD DESCRIPTION OF PROCEDURE: After informed consent was obtained, the patient was brought to the lab where he was prepped and draped in the usual sterile fashion. A 6-Thai sheath was inserted into the left femoral artery. Next, using a pigtail catheter, the catheter was advanced into the distal abdominal aorta and angiography of the abdominal aorta and aortoiliac arteries were performed. Thereafter, over a 0.035 wire, the catheter was advanced around the aorta to the contralateral right external iliac artery and selective angiography of the right lower extremity was performed. Revascularization was performed as described below. Following revascularization, the catheter was pulled back to the ipsilateral left external iliac artery and selective angiography of the left lower extremity was performed. HEMODYNAMICS: For the patient's hemodynamics, please refer to the event log. FINDINGS: The patient's infrarenal abdominal aorta is calcified with mild disease. The right lower extremity. The right common iliac artery has a 30-40% stenosis. The right external iliac artery has a 40% stenosis. The distal external iliac artery tapers and is subtotal. At the level of the common femoral, a 99% stenosis is noted. The remainder of the right superficial femoral artery has no significant disease. Good 2-vessel runoff is noted. The anterior tibial artery tapers. Left lower extremity: The left common and external iliac artery has mild disease. The left superficial femoral artery is occluded at its origin with reconstitution at the adductor canal. The patient appears to have 3-vessel runoff. Percutaneous coronary intervention: Using a 5 x 40 mm balloon, the right common femoral and external iliac artery was angioplastied. Next, using a 7 x 59 Omnilink Elite stent, the stent was placed immediately at the distal external and the very proximal common femoral at the level of the femoral head where it was deployed to rated burst atmospheres. Followup angiography revealed excellent angiographic results. IMPRESSION: * Angioplasty/stenting of a 99% right common femoral and external iliac artery with a 7 x 59 Omnilink Elite stent with excellent angiographic results. * Mild disease of both iliac arteries. * Occluded left superficial femoral artery with reconstitution at the adductor canal. * The patient has good 3-vessel runoff on the left and appears to have 2-vessel runoff on the right. Ayana Dyer MD TID: [id number] RECEIPT: [id number] CHRISTOPHER/ISAI
== END 2025-01-27 14:38 | disposition left against medical advice (07) | DRG 252 ==
LOC: ER 18:28 → ED HOLD 21:15 → EDBEDREQ 22:02 → ORTHO 4S 22:43
PROVIDERS: ADMIT Internal Medicine; ATTEND Internal Medicine
PROC: B4201ZZ Computerized Tomography (CT Scan) of Abdominal Aorta using Low Osmolar Contrast (ICD-10-PCS; 2025-01-24)
PROC: B4241ZZ Computerized Tomography (CT Scan) of Superior Mesenteric Artery using Low Osmolar Contrast (ICD-10-PCS; 2025-01-24)
PROC: B42 Imaging, Lower Arteries, Computerized Tomography (CT Scan) (ICD-10-PCS; 2025-01-24)
PROC: B4281ZZ Computerized Tomography (CT Scan) of Bilateral Renal Arteries using Low Osmolar Contrast (ICD-10-PCS; 2025-01-24)
PROC: B42C1ZZ Computerized Tomography (CT Scan) of Pelvic Arteries using Low Osmolar Contrast (ICD-10-PCS; 2025-01-24)
PROC: B42H1ZZ Computerized Tomography (CT Scan) of Bilateral Lower Extremity Arteries using Low Osmolar Contrast (ICD-10-PCS; 2025-01-24)
PROC: B4211ZZ Computerized Tomography (CT Scan) of Celiac Artery using Low Osmolar Contrast (ICD-10-PCS; 2025-01-24)
PROC: 05H933Z Insertion of Infusion Device into Right Brachial Vein, Percutaneous Approach (ICD-10-PCS; 2025-01-24)
PROC: B54MZZA Ultrasonography of Right Upper Extremity Veins, Guidance (ICD-10-PCS; 2025-01-24)
PROC: 047H34Z Dilation of Right External Iliac Artery with Drug-eluting Intraluminal Device, Percutaneous Approach (ICD-10-PCS; principal; 2025-01-25)
PROC: 047K34Z Dilation of Right Femoral Artery with Drug-eluting Intraluminal Device, Percutaneous Approach (ICD-10-PCS; 2025-01-25)
PROC: B4101ZZ Fluoroscopy of Abdominal Aorta using Low Osmolar Contrast (ICD-10-PCS; 2025-01-25)
PROC: B41D1ZZ Fluoroscopy of Aorta and Bilateral Lower Extremity Arteries using Low Osmolar Contrast (ICD-10-PCS; 2025-01-25)
DX: I70.261 Atherosclerosis of native arteries of extremities with gangrene, right leg (principal); A48.0 Gas gangrene; G93.40 Encephalopathy, unspecified; I70.8 Atherosclerosis of other arteries; I70.0 Atherosclerosis of aorta; E87.6 Hypokalemia; Z72.0 Tobacco use; Z79.82 Long term (current) use of aspirin; Z53.29 Procedure and treatment not carried out because of patient's decision for other reasons
CPT/HCPCS: 36246; 36410; 36415; 37221; 70450; 71045; 73630; 73718; 75635; 76937; 80048; 80053; 80061; 80202; 80320; 83036; 83605; 83735; 84100; 84145; 84443; 85025; 85610; 85651; 85730; 86885; 86900; 86901; 87040; 87081; 93005; 93922; 96365; 96375; 97116; 97161; 97530; 99152; 99153; 99291; A4615; A6258; A6590; C1725; C1751; C1760; C1769; C1876; C1894; G0378; J1171; J1630; J1644; J2003; J2060; J2250; J2270; J2405; J2543; J3010; J3373; J3374; J7030; Q9967